=== PATIENT | male | born 1940 | race Caucasian/White ===

== ENCOUNTER 2020-12-22 10:06 | Outpatient (CLI) | payer MEDICARE, SELFPAY ==
--- NOTE | 2020-12-22 10:47 | ECG_ITS ---
Measurements Intervals [place] Rate: 66 P: 56 VT: 151 QRS: -13 QRSD: 100 T: 43 QT: 392 QTc: 413 Interpretive Statements SINUS RHYTHM WITH MARKED SINUS ARRHYTHMIA BORDERLINE ECG Electronically Signed On 12-22-2020 12:12:14 CDT by Rajat Mayo D.O.
[2020-12-22 11:04] LABS: Albumin Level 4.2 g/dL (3.5-5.1); Estimated Glomerular Filt Rate > 60
== END 2020-12-22 10:07 | disposition home or self-care (01) ==
PROVIDERS: Visit Provider Orthopaedic Surgery
DX: M16.11 Unilateral primary osteoarthritis, right hip (principal); Z01.818 Encounter for other preprocedural examination; R94.31 Abnormal electrocardiogram [ECG] [EKG]
CPT/HCPCS: 36415; 82040; 82565; 93005

== ENCOUNTER 2021-03-09 11:37 | Outpatient (CLI) | payer MEDICARE, SELFPAY ==
[2021-03-09 13:05] LABS: Basophils Absolute Auto 0.1 K/mm3 (0.0-0.1); Basophils Percent Auto 0.7 % (0.2-1.2); Eosinophils Absolute Auto 0.3 K/mm3 (0-0.3); Eosinophils Percent Auto 3.1 % (0-4.4); Hematocrit 35.4 % (42.0-52.0); Hemoglobin 10.1 g/dL (14.0-18.0); Immature Granulocyte Absolute 0.03 K/mm3 (0.00-0.031); Immature Granulocyte Percent A 0.3 % (0-0.5); Lymphocytes Absolute Auto 3.44 K/mm3 (0.9-3.2); Lymphocytes Percent Auto 33.9 % (18.3-44.2); Mean Corpuscular HGB Conc 28.5 g/dl (32-36); Mean Corpuscular Volume 73.8 fl (80-100); Mean Platelet Volume 11.7 fl (7.4-10.4); Monocytes Percent Auto 10.2 % (2.6-8.5); Neutrophils Absolute Auto 5.3 K/mm3 (1.3-6.7); Neutrophils Percent Auto 51.8 % (45.5-73.1); Platelet Count Result 325 k/mm3 (150-375); Red Cell Distribution Width 17.4 % (11.5-14.5); White Blood Count 10.1 K/mm3 (4.5-10.0)
[2021-03-09 13:36] LABS: Albumin Level 4.4 g/dL (3.5-5.1); Estimated Glomerular Filt Rate > 60; Glucose 84 mg/dL (65-110); Urine Cotinine NEGATIVE
[2021-03-09 14:38] LABS: Hemoglobin A1C 5.6 % (<5.7)
== END 2021-03-09 11:38 | disposition home or self-care (01) ==
PROVIDERS: Visit Provider Orthopaedic Surgery
DX: M16.11 Unilateral primary osteoarthritis, right hip (principal); Z01.818 Encounter for other preprocedural examination
CPT/HCPCS: 80307; 82040; 82565; 82947; 83036; 85025; 87081

== ENCOUNTER 2021-03-31 01:38 | Day surgery (SDC) | payer MEDICARE, SELFPAY ==
[2021-03-09 11:52] VITALS: BMI 24.0
[2021-03-09 12:49] VITALS: BP 141/65; PULSE 60; RESP 16; TEMP 37.2; O2SAT 99
--- NOTE | 2021-03-30 10:40 | WPDANESEPPF ---
Anes - Initial Pre Proc Eval Procedure: Operation Date: 03/31/21 07:30 Proposed Procedures p Right Total Hip Arthroplasty - Shan Lindsey MD Date/Time: 03/30/21 10:40 Surgeon: Shan Lindsey MD Pre Op Diagnosis: primary OA right hip Patient Data Age: 81 Gender: M Height: 1.78 m Weight: 75.9 kg Last Vital Signs Temp 37.2 C 03/09/21 12:49 Pulse 60 03/09/21 12:49 Resp 16 03/09/21 12:49 BP 141/65 H 03/09/21 12:49 Pulse Ox 99 03/09/21 12:49 Allergies Allergy/AdvReac Type Severity Reaction Status Date / Time No Known Allergies Allergy Verified 03/31/21 06:16 Home Medications Medication Instructions Recorded Confirmed Type ascorbate calcium (vitamin C) 500 500 mg PO DAILY 10/29/20 03/31/21 History mg tablet cholecalciferol (vitamin D3) 50 25 mcg PO DAILY 10/29/20 03/31/21 History mcg (2,000 unit) capsule chondroitin sulfate A sodium 1,200 mg PO DAILY 10/29/20 03/31/21 History glucosamine HCl 1,500 mg tablet 1,500 mg PO DAILY 10/29/20 03/31/21 History naproxen sodium [Aleve] 220 mg PO DAILY 03/09/21 03/31/21 History Patient hx anesthesia problems: none Family hx anesthesia problems: none PMFSH Past Medical History Medical History (Updated 03/30/21 @ 10:41 by Anjel Sanchez DO) Asbestosis Primary osteoarthritis of right hip Surgical History Surgical History H/O tooth extraction History of hernia repair Social History Social History Smoking packs per day: 1 Smoking cigarettes per day: 20.0 Years smoked: 20 Smoking pack-years: 20.00 Smoking status: Current every day smoker Tobacco type: cigarettes Smoking end date: 11/18/20 Additional smoking assessment comments: DENIES ANY FORM OF TOBACCO USE Alcohol intake: never Substance use: never Living arrangements: with family Spiritual care concerns: No Anes - Eval Final PreProcedure Day of Procedure 03/30/21 10:40 Patient weight: normal Heart: regular rate and rhythm Lungs: clear to auscultation and normal air movement Airway: Mallampati scale class II Neurological: alert and oriented Last oral intake: >/= 8 hours ASA classification: III Emergent: no Anesthetic plan: proceed Anesthesia type and monitoring: general ETT and standard monitoring Informed Consent: The patient's anesthetic plan and its attendant risks and benefits were discussed with the patient/family/POA. Questions were solicited and answers provided to the satisfaction of the patient/family/POA.
[2021-03-31] VITALS (11 sets, daily range): BP systolic 128–171; BP diastolic 55–82; PULSE 64–86; RESP 13–17; TEMP 36.1–36.6; O2SAT 94–100
--- NOTE | ~2021-03-31 | XR_ITS ---
EXAMINATION: XR hip RT min 2V DATE: 03/31/2021 09:55 INDICATION: Postoperative evaluation following right total hip arthroplasty TECHNIQUE: Anteroposterior and lateral views of the right hip were obtained. COMPARISON: 11/18/2020 FINDINGS: Interval placement of a noncemented right total hip arthroplasty which appears well seated in near an atomic alignment. Expected soft tissue gas in the postoperative bed along the neck of the arthroplast y. No fractures identified. IMPRESSION: 1. Right total hip arthroplasty, negative for postoperative purposes. Reviewed, dictated and finalized at location A.
[2021-03-31] MEDS: ACETAMINOPHEN 500 MG TABLET 1000 MG PO (06:30)
[2021-03-31] MEDS: LACTATED RINGERS 1,000 ML 30 ML IV CONT ×2 (06:39→09:44)
[2021-03-31] MEDS: TRANEXAMIC ACID 1,000MG/ISO100 1,000 MG/100 ML BAG 200 MG IVPB (07:12)
--- NOTE | 2021-03-31 07:30 | WPDHPUPDATE1 ---
History and Physical Update Update Date/Time: 03/31/21 07:30 History and Physical has been reviewed, including an updated exam of the patient. There are NO changes in the patient's condition. Risks, benefits, and alternatives have been discussed and questions answered. Patient agrees to proceed with procedure.
[2021-03-31] MEDS: ceFAZolin 2 GM/D5W 50 ML 2 GM/50 ML BAG IVPB (07:34)
--- NOTE | 2021-03-31 13:03 | SUR.PHASEII ---
Patient meets anesthesia discharge criteria. Waiting to speak with doctor before discharge.
--- NOTE | 2021-03-31 16:40 | W.PM.PROC2 ---
Procedure Note - Detailed Date of Procedure 03/31/21 Pre-op Diagnosis primary OA right hip Post-op Diagnosis same Procedure Performed Right total hip arthrpolasty. Surgeon Shan Lindsey MD Computational Chemist Keisha Zaman PA-C Anesthesia general Findings Excellent bone quality. Anterior acetabular osteophytes removed. Description of Procedure The patient was given preoperative antibiotics. A general anesthetic was administered. The patient was carefully placed in the lateral decubitus position on the PEG board. The shoulders and hips were carefully positioned for component and leg length positioning reference. The hip was prepped and draped in the usual sterile fashion. A longitudinal incision was created over the posterior aspect of the greater trochanter. Careful dissection was brought down through the deep fascia with electrocautery. A minimally invasive optimized posterior approach to the hip was performed. The short external rotators and capsule were taken down in an L-shaped capsulotomy. The tissue was tagged for later repair using number 2 high strength suture. The femoral neck was measured and taken in situ. The femoral head was removed. The acetabulum was carefully exposed. The inferior capsule was released. The labrum was resected. The acetabulum was sequentially reamed to one over the intended cup size. The cup was impacted into position with excellent press-fit. Typical anatomic landmarks, including the bony contact points as well as the inferior transverse acetabular ligament were used to confirm cup positioning with preoperative templating. Attention was turned to the femur, which was carefully exposed. The hip was reamed and then broached sequentially. Excellent press-fit was obtained with the broach. The hip was trialed. Measurements were utilized, including the lesser trochanter as well as the center of the femoral head and the tip of the trochanter, and excellent assessment of the offset and leg lengths were confirmed. The real component was impacted into position. Trialing confirmed appropriate leg length and offset with soft tissue balancing as well apparent feel of the leg, both at the knee and the heel. Soft tissues were assessed using the the iliotibial band. Reduction of the posterior capsule and external rotators were also used as a secondary assessment. The hip was copiously irrigated with pulsatile lavage antibiotic solution periodically throughout the procedure. The real components were then assembled and reduced. The hip was stable throughout typical maneuvers, including extension, external rotation to 70 degrees, the position of sleep as well as flexion to 90 degrees with internal rotation past 25 degrees. The shake test confirmed stability without impingement. Osteophytes were removed as necessary. The short external rotators and capsule were repaired back to the posterior trochanter through drill holes. The deep fascia was repaired with running number 2 Quill suture, followed by 0 Stratafix suture and 2-0 Stratafix suture in the dermis. Steri-Strips were placed on the skin, followed by a sterile silver occlusive dressing. There were no complications. Meticulous hemostasis was maintained with the AquaMantys device. The patient was brought to the recovery room in stable condition. There were no complications. Physician assistant buyer, Keisha Rubio PA-C, required for surgery; including patient positioning, draping, tissue retraction, maintaining instrument position, hip dislocation and reduction, wound closure, and dressing placement. Implants The Accolade II hip stem, 127 degree size 5 , was utilized with excellent press-fit. The 56 mm ADM acetabular component was impacted with excellent press-fit stability. The +4 , 28 mm Biolox ceramic femoral head was utilized. Estimated Blood Loss -200.0 Drains No Packing No Pathology none sent Complications No immediate complications Condition stable Dispositi
== END 2021-03-31 13:40 | disposition home or self-care (01) ==
PROVIDERS: Visit Provider Orthopaedic Surgery
PROC: (CPT 27130; principal; 2021-03-31 07:30)
DX: M16.11 Unilateral primary osteoarthritis, right hip (principal); J61 Pneumoconiosis due to asbestos and other mineral fibers; F17.210 Nicotine dependence, cigarettes, uncomplicated
CPT/HCPCS: 27130; 36415; 73502; 80307; 82040; 82565; 82947; 83036; 85025; 86850; 86900; 86901; 87081; 97110; 97161; A9270; C1776; J0171; J0330; J0690; J1100; J1885; J2270; J2405; J2704; J2710; J2795; J7120